=== PATIENT | male | born 1965 | race Caucasian/White ===

== ENCOUNTER 2020-01-03 14:39 | Emergency (ER) | payer BC, OTHER ==
[2020-01-03 14:57] VITALS: BP 156/94
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
--- NOTE | 2020-01-03 15:21 | XRAY Report ---
PROCEDURE: Ankle 3 View LT INDICATIONS: swelling TECHNIQUE: 3 views of the ankle were acquired. COMPARISON: None. FINDINGS: Bones: There is a curvilinear lucency within the lateral malleolus with a slight cortical step-off co nsistent with a relatively nondisplaced fracture. Ankle mortise is normally aligned. No suspicious b anthony lesions. Soft tissues: There is soft tissue swelling over the lateral malleolus. There is a small tibiotalar joint effusion. Achilles tendon appears intact. IMPRESSION: 1. Nondisplaced fracture of the lateral malleolus. Reviewed by: Robert Montanez MD on 01/03/2020 3:20 PM PDT Approved by: Robert Montanez MD on 01/03/2020 3:20 PM PDT Station ID: [id number]
[2020-01-03] MEDS ORDERED: ACETAMINOPHEN 325 MG TABLET PO STA (15:52)
[2020-01-03] MEDS ORDERED: IBUPROFEN 600 MG TABLET PO STA (15:52)
== END 2020-01-03 16:21 | disposition home or self-care (01) ==
LOC: ED 14:39
DX: S82.65XA Nondisplaced fracture of lateral malleolus of left fibula, initial encounter for closed fracture (principal); V28.4XXA Motorcycle driver injured in noncollision transport accident in traffic accident, initial encounter; Y93.89 Activity, other specified; Y92.410 Unspecified street and highway as the place of occurrence of the external cause
CPT/HCPCS: 73610; 99282; 99283; A9270